=== PATIENT | female | born 1965 | race Two or more races ===

== ENCOUNTER 2020-06-14 06:35 | Outpatient (REF) | payer OTHER, SELFPAY | END 2020-06-14 06:36 | disposition home or self-care (01) | LOC: HO.LAB 06:35 | PROVIDERS: Visit Provider Internal Medicine | DX: Z20.822 Contact with and (suspected) exposure to COVID-19 (principal) | CPT/HCPCS: 36415; C9803; U0003 ==

== ENCOUNTER 2020-06-30 07:41 | Outpatient (REF) | payer OTHER, SELFPAY | END 2020-06-30 07:42 | disposition home or self-care (01) | LOC: HO.LAB 07:41 | PROVIDERS: Visit Provider Internal Medicine | DX: Z20.822 Contact with and (suspected) exposure to COVID-19 (principal) | CPT/HCPCS: 36415; C9803; U0003; U0005 ==

== ENCOUNTER 2023-10-05 10:55 | Emergency (ER) | payer BC, SELFPAY ==
--- NOTE | ~2023-10-05 | XR_ITS ---
EXAMINATION: XR KNEE, LEFT CLINICAL INFORMATION: Left knee pain following a fall. COMPARISON: None available. TECHNIQUE: Four views of the left knee. FINDINGS: No acute fracture or dislocation. No significant joint space narrowing or marginal osteophytes. No osseous erosion. No abnormal soft tissue calcification. No significant joint effusion. XR/XR knee LT 4V IMPRESSION: Unremarkable examination.
[2023-10-05 11:19] VITALS: BP 139/91; PULSE 75; RESP 17; TEMP 36.6; O2SAT 99; BMI 38.9
--- NOTE | 2023-10-05 11:20 | ED_ITS ---
HPI - Extremity Injury (Lower) General Chief Complaint: Extremity Injury, Lower Stated Complaint: Fall L knee pain Time Seen by Provider: 10/05/23 11:43 History of Present Illness HPI Narrative: 57 yold female presents to the for left knee pain. patient states she was going down the stairs and she tripped and she twisted her left knee. Patient denies falling to the ground or hitting head. patient denies any chest pain, abdominal pain, rectal bleeding, vomiting blood, back pain, any other concerning symptoms since falling 3 days ago. Related Data Previous Rx's ?Medication ?Instructions ?Recorded naproxen 500 mg tablet 500 mg PO BID PRN pain 7 days #14 10/05/23 tabs Allergies Allergy/AdvReac Type Severity Reaction Status Date / Time No Known Allergies Allergy Verified 10/05/23 11:21 Review of Systems 2 Review of Systems: left knee pain Yes all other systems are reviewed and are negative [facility] Social History Social History (System 06/05/21 @ 14:43 by Carisa Colindres) Advance Directives: No Advance Directives Information Provided: Yes Physical Exam 2 Vital Signs: Vital Signs: Last Vital Signs Temp 0 F L 10/05/23 14:04 Pulse 62 10/05/23 14:04 Resp 14 10/05/23 14:04 BP 121/76 10/05/23 14:04 Pulse Ox 97 10/05/23 14:04 BMI result Body Mass Index 38.9 Const: General: cooperative, healthy appearing, comfortable, no acute distress, well developed, alert, awake and Physically active O rientation/consciousness: oriented to person, oriented to place, oriented to time and patient oriented x3 HEENT: Head: Yes normal to inspection, Yes No palpable skull fracture present, Yes normocephalic and Yes atraumatic Ears: hearing grossly normal bilaterally, external ears normal, TM's normal bilaterally, TM normal on the right, TM normal on the left, EAC's normal, mastoids normal and no periauricular adenopathy Throat: Yes posterior oropharynx normal, Yes tonsils normal and Yes uvula midline Eyes: General: appearance normal, both eyes and all related structures Neck: Neck: Yes normal visual inspection, Yes full ROM, Yes no lymphadenopathy, Yes no meningeal signs, Yes trachea midline, Yes supple, No anterior neck swelling and No tender Chest: Chest palpation & inspection: normal inspection of the chest and normal palpation of entire chest wall Resp: Effort & Inspection: normal respiratory effort and able to speak in complete sentences Auscultation: clear to auscultation bilaterally Cardio: Jugular venous distension: no JVD Heart sounds: S1 normal heart sound present and S2 normal heart sound present GI: Inspection: Yes normal to inspection Palpation (GI): Soft to palpation, not firm, nontender, no guarding and not rigid : General: No CVA tenderness and Yes no CVA tenderness Back/Spine/Pelvis: Back: no CVA tenderness, No CVA tenderness and No back tenderness Skin: General skin exam: no rashes or lesions noted, elasticity normal and turgor normal Neuro: General: oriented to person, oriented to place, oriented to time, patient oriented x3, gait normal, tone normal, moves all extremities, Normal light touch and pain sensation, no meningeal signs, no focal motor deficits, CN's II-XI intact bilaterally and normal sensation to monofilament Extrem: General: Yes normal to inspection, Yes full ROM and Yes capillary refill normal Knee images: 1. Positive for medial knee tenderness on palpation. negative for erythema, ecchymosis, crepitus, deformity, or swelling. Rest of extremity normal. Motor/ neuro/vascular exam intact. Psych: Appearance: grossly normal, well kempt and not disheveled Course Course Course Narrative: This is a Rapid Medical Examination (RME) performed by John Dunne PA-C in triage. Full HPI, ROS, assessment and treatment plan per primary provider in the Main ED. 57 yo female w/ hx HTN, obesity presenting with left knee pain s/p trip and fall down some stairs 3 days ago. Pain 7/10. Limping since. On exam, mild swelling and tenderness of the medial knee. Plan: x-ray left knee Medications Administered Discontinued Medications Generic Name Dose Route Start Last Admin Trade Name Freq PRN Reason Stop Dose Admin Ibuprofen 800 mg 10/05/23 12:01 10/05/23 12:09 Ibuprofen 800 Mg Tablet PO 10/05/23 12:02 800 mg ONCE ONE Administration Medical Decision Making Medical Decision Making [facility] Narrative: 57-year-old female presents to ED for left knee pain after twisting knee while trying to break the fall on the stairs. Whole-body evaluated negative for signs of life-threatening trauma. X-ray is normal. Patient is safe for discharge. Patient is explained worrisome signs. Patient given Motrin for pain. placed in blanca wrap. not suspecting joint, dislocation, DVt, compartment syndrome, cellulitis, or arterial occlusion Differential Diagnosis Differential Diagnoses: The differential diagnosis associated with the presentation includes ( knee sprain, knee fracture, knee dislocation) Admission/Observation Consideration of admission/observation: Escalation of care including admission/observation considered Independent Interpretation I performed an independent interpretation of an: Plain X-Ray Radiology Impression Discussion of test interpretation with radiology: I have reviewed the radiologist's reading. Independent Historian Clinical information obtained from an independent historian. History obtained from or confirmed by: Other ( patient) External Record Review External record reviewed: Other ( prior visits) Prescription Management I considered prescription management with: Pain Medication Discharge Plan Discharge Clinical Impression: Left knee sprain Patient Disposition: Home, Self-Care Instructions: Knee Sprain (ED) Additional Instructions: recommend follow-up with primary care provider orthopedic surgeon. Return to the ED for any worsening knee pain, swelling, redness, bluish black discoloration, calf pain, chest pain, shortness of breath, inability to walk, paralysis, numbness/ tingling, fever, chills, or any other concerning symptoms. Prescriptions: New naproxen 500 mg tablet 500 mg PO BID PRN (Reason: pain) 7 Days Qty: 14 0RF Stand Alone Forms: Work/School Release Interventions: ED Discharge Assessment Last Done: 10/05/23 14:04 Discharge Date/Time: 10/05/23 14:07 Print Language: Hebrew
[2023-10-05] MEDS: Ibuprofen 800 MG TABLET PO (12:09)
[2023-10-05 14:04] VITALS: BP 121/76; PULSE 62; RESP 14; TEMP -17.7; TEMP 0; O2SAT 97
== END 2023-10-05 14:07 | disposition home or self-care (01) ==
PROVIDERS: Emergency Provider Emergency Medicine
DX: S83.92XA Sprain of unspecified site of left knee, initial encounter (principal); M25.562 Pain in left knee; W10.9XXA Fall (on) (from) unspecified stairs and steps, initial encounter; Y93.9 Activity, unspecified; Y92.9 Unspecified place or not applicable; Y99.8 Other external cause status
CPT/HCPCS: 73564; 99283